=== PATIENT | male | born 1930 | race Caucasian/White ===

== ENCOUNTER 2017-04-26 07:54 | Emergency (ER) | payer OTHER, MEDICARE ==
[~2017-04-26] VITALS: Ht 175.3 cm; Wt 81.2 kg
[~2017-04-26 07:54] MED LIST: LIPITOR20 MG PO; PHENERGAN-CODE120 ML PO; TESSALON200 MG PO; ZITHROMAX250 MG PO
[2017-04-26 08:33] LABS: HEMATOCRIT 36.2 % (38.0-50.0); MCH 34.3 PG (29.0-34.0); MCHC 33.7 G/DL (30.0-36.0); MCV 101.7 FL (86-99); MEAN PLAT.VOLUME 9.6 uM^3 (9.0-12.4); PLATELET COUNT 180 K/uL (156-360); RBC DIS.WIDTH-CV 12.2 % (11.8-14.6); RBC DIS.WIDTH-SD 45.8 % (39-53); RED BLOOD COUNT 3.56 M/uL (4.00-5.50); WHITE BLOOD COUNT 6.4 K/uL (4.1-10.2)
[2017-04-26 08:45] LABS: CHLORIDE 107 mEq/L (99-109); POTASSIUM 4.3 mEq/L (3.7-5.4); SODIUM 137 mEq/L (136-147)
[2017-04-26 08:47] LABS: GLUCOSE 120 mg/dL (70-99)
[2017-04-26 08:49] LABS: ANION GAP 9 MEQ/L (2-14); TOTAL BILIRUBIN 0.6 mg/dL (0.0-1.0)
[2017-04-26 08:51] LABS: ALKALINE PHOSPHATASE 78 IU/L (3-129); GFR ESTIMATE (CALCULATED) > 59 mL/min/
[2017-04-26 08:52] LABS: UREA NITROGEN (BUN) 20 mg/dL (9-23)
[2017-04-26 10:02] LABS: ADD MIUA? NO; BILIRUBIN NEGATIVE; BLOOD NEGATIVE; COLOR YELLOW ((YELLOW)); GLUCOSE (STRIP) NEGATIVE; KETONES NEGATIVE; LEUKOCYTES NEGATIVE; NITRITE NEGATIVE; PROTEIN (STRIP) NEGATIVE; SPECIFIC GRAVITY 1.013 (1.000-1.030); UCUL ADDED? NO; UROBILINOGEN 0.2 MG/DL (0.2-1.0)
[2017-04-26] MEDS ORDERED: FLEXERIL5 MG PO (10:21)
[2017-04-26] MEDS ORDERED: LIDODERM 5% P1 PATCH TD (10:21)
[2017-04-26] MEDS ORDERED: ZOFRAN ODT4 MG PO (10:22)
[2017-04-26] MEDS ORDERED: PERCOCET 2.51 TABLET PO (10:27)
[2017-04-26 10:46] VITALS: BP 136/68
== END 2017-04-26 10:49 | disposition home or self-care (01) ==
LOC: EME 07:54
PROVIDERS: Nurse Practitioner Family
DX: R10.9 Unspecified abdominal pain (principal); R34 Anuria and oliguria; R11.0 Nausea; S33.5XXA Sprain of ligaments of lumbar spine, initial encounter; X58.XXXA Exposure to other specified factors, initial encounter; K57.30 Diverticulosis of large intestine without perforation or abscess without bleeding; I51.7 Cardiomegaly; K44.9 Diaphragmatic hernia without obstruction or gangrene; N28.1 Cyst of kidney, acquired; Z87.442 Personal history of urinary calculi; E78.5 Hyperlipidemia, unspecified; Z85.828 Personal history of other malignant neoplasm of skin
CPT/HCPCS: 74176; 80053; 81003; 85027; 99281; 99284